=== PATIENT | male | born 1960 | race Caucasian/White ===

== ENCOUNTER 2017-03-06 17:06 | Observation (INO) | payer MEDICARE, MEDICAID ==
[2017-03-06 19:05] LABS: Albumin 3.8 g/dL (3.4-5.0); Alkaline Phosphatase 128 U/L (45-117); Anion Gap 10 (5-15); Aspartate Aminotransferase 34 U/L (15-37); BUN/Creatinine Ratio 14.3; Bilirubin, Total 0.6 mg/dL (0.2-1.0); Blood Urea Nitrogen 10 mg/dL (7-18); Calcium 8.4 mg/dL (8.5-10.1); Carbon Dioxide 20 mmol/L (21-32); Chloride 113 mmol/L (98-107); GFR African American 149 mL/min; GFR Non-African American 124 mL/min; Glucose 95 mg/dL (74-106); Potassium 3.6 mmol/L (3.5-5.1); Sodium 143 mmol/L (136-145); Total Protein 7.7 g/dL (6.4-8.2)
[2017-03-06 19:49] LABS: Basophils % (auto) 0.3 % (0.0-2.0); Eosinophils % (auto) 1.1 % (0.0-7.0); Lymphocytes # (auto) 0.4 uL; Lymphocytes % (auto) 16.7 % (10.0-50.0); Monocytes # (auto) 0.2 uL; Monocytes % (auto) 6.5 % (0.0-12.0); Neutrophils % (auto) 75.4 % (37.0-80.0); White Blood Cell 2.6 10^3/uL (4.4-10.8)
[2017-03-06 19:50] LABS: Basophils # (auto) 0 uL; Eosinophils # (auto) 0 uL; Hematocrit 39.8 % (41.0-53.0); Hemoglobin 13.5 g/dL (13.5-17.5); Mean Corpuscular Hemoglobin 28.8 pg (28.0-32.0); Mean Corpuscular Hgb Conc. 33.9 g/dL (32.0-36.0); Mean Corpuscular Volume 85.1 fL (80.0-100.0); Mean Platelet Volume 8.4 fL (6.9-10.8); Platelet Count (auto) 54 10^3/uL (140-450); Red Cell Distribution Width 17.4 % (11.8-14.3)
[2017-03-06 19:57] LABS: Platelet Estimate Decreased; RBC Morphology Normal
[2017-03-06 23:30] VITALS: BP 130/86
[2017-03-06] MEDS ORDERED: SODIUM CHLORIDE 0.9% 1,000 ML IV ONE ×2 (23:42)
[2017-03-06] MEDS ORDERED: THIAMINE HCL 100 MG/ML 2ML VIAL IV ONE (23:45)
== END 2017-03-07 06:21 | disposition home or self-care (01) | DRG 897 ==
LOC: EDBD 17:06 → ER 17:10 → OVERFLOW 17:11 → ER 03-07 05:09
PROVIDERS: ADMIT Emergency Medicine; ATTEND Emergency Medicine
DX: F10.129 Alcohol abuse with intoxication, unspecified (principal); F17.210 Nicotine dependence, cigarettes, uncomplicated; R41.82 Altered mental status, unspecified; I10 Essential (primary) hypertension; Z83.3 Family history of diabetes mellitus
CPT/HCPCS: 36415; 70450; 71010; 80053; 80320; 84484; 85025; 93005; 96361; 96374; 99285; G0378; J3411; J7030

== ENCOUNTER 2019-01-01 15:48 | Inpatient (IN) | payer MEDICAID, MEDICARE ==
[~2019-01-01] VITALS: Ht 177.8 cm; Wt 84.9 kg
[2019-01-01 17:51] LABS: Basophils # (auto) 0 uL; Eosinophils # (auto) 0 uL; Hemoglobin 14.2 g/dL (13.5-17.5); Monocytes # (auto) 0.2 uL; White Blood Cell 2.7 10^3/uL (4.4-10.8)
[2019-01-01 17:53] LABS: Basophils % (auto) 1.5 % (0.0-2.0); Eosinophils % (auto) 0.8 % (0.0-7.0); Lymphocytes # (auto) 0.7 uL; Lymphocytes % (auto) 24.3 % (10.0-50.0); Mean Corpuscular Hemoglobin 24.4 pg (28.0-32.0); Mean Corpuscular Hgb Conc. 32.2 g/dL (32.0-36.0); Mean Corpuscular Volume 75.9 fL (80.0-100.0); Monocytes % (auto) 5.5 % (0.0-12.0); Neutrophils # (auto) 1.8 uL; Neutrophils % (auto) 67.9 % (37.0-80.0); Nucleated Red Blood Cells % 0.3 %; Platelet Count (auto) 51 10^3/uL (140-450); Red Blood Cells 5.79 10^6/uL (4.5-5.90)
[2019-01-01 17:58] LABS: Red Cell Distribution Width 22.7 % (11.8-14.3)
[2019-01-01 18:36] LABS: Albumin 3.6 g/dL (3.4-5.0); Anion Gap 11 (5-15); Blood Urea Nitrogen 11 mg/dL (7-18); Calcium 7.6 mg/dL (8.5-10.1); Carbon Dioxide 19 mmol/L (21-32); Chloride 114 mmol/L (98-107); Glucose 83 mg/dL (74-106); Potassium 3.7 mmol/L (3.5-5.1); Sodium 144 mmol/L (136-145)
[2019-01-01 18:45] LABS: Alanine Aminotransferase 47 U/L (16-61); Alkaline Phosphatase 120 U/L (45-117); Aspartate Aminotransferase 45 U/L (15-37); BUN/Creatinine Ratio 13.3; Bilirubin, Total 0.6 mg/dL (0.2-1.0); GFR African American 122 mL/min; GFR Non-African American 101 mL/min; Total Protein 7.7 g/dL (6.4-8.2)
[2019-01-01] MEDS ORDERED: PANTOPRAZOLE 40 MG/10 ML VIAL INJ IV ONE (22:15)
[2019-01-01] MEDS ORDERED: SODIUM CHLORIDE 0.9% 1,000 ML IV SCH (22:15)
[2019-01-01] MEDS ORDERED: ONDANSETRON HCL 4 MG/2 ML VIAL IV PRN (22:15)
[2019-01-01 23:03] LABS: Hematocrit 39.2 % (41.0-53.0); Hemoglobin 12.7 g/dL (13.5-17.5)
[2019-01-01] MEDS ORDERED: FAMOTIDINE (10MG/ML) 2ML VL IV ONE (23:15)
[2019-01-02 00:07] VITALS: BP 147/84
--- NOTE | 2019-01-02 00:07 | NUR ---
[facility] admit from ER KATELYN ARENAS admitted to [facility] after hand off tool received. Patient oriented to primary RN, unit, room, bed, and unit policies regarding patient care and visiting hours. Patient weighed by bedscale and encouraged to call if they need something. All questions and concerns addressed, patient verbalized understanding.
--- NOTE | 2019-01-02 00:16 | NUR ---
Patient complaining of mod to severe pain to lower back. Paged CURRICULUM MANAGER Mian for pain medication, awaiting call back.
[2019-01-02] MEDS: chlordiazePOXIDE HCL 25 MG CAP PO PRN ×3 (00:31→17:07)
--- NOTE | 2019-01-02 00:31 | NUR ---
Patient noted with tremors to bilateral upper extremities. Will administer Librium as ordered.
[2019-01-02] MEDS ORDERED: AMITRIP PO (01:01)
[2019-01-02] MEDS ORDERED: TRAZ-220 PO (01:01)
[2019-01-02] MEDS ORDERED: CARI-277 PO (01:01)
--- NOTE | 2019-01-02 01:20 | NUR ---
Patient noted with open wound to right forehead and top of head. Pictures taken. Wound consult placed in per protocol.
[2019-01-02] MEDS: traMADol HCL 50 MG TAB PO PRN ×3 (01:53→19:47)
--- NOTE | 2019-01-02 01:53 | NUR ---
New order for Pain medication received.
[2019-01-02] MEDS: TEMAZEPAM 15 MG CAP PO PRN (01:54)
--- NOTE | 2019-01-02 02:02 | NUR ---
HOME MEDICATION Patient unable to recall complete list of home meds, requesting nurse to call pharmacy or PCP office for complete list. Will endorse to next shift RN in the morning.
--- NOTE | 2019-01-02 04:30 | NUR ---
UA Specimen bottle provided, instructed patient to call nurse when sample available. Pt verbalized understanding.
[2019-01-02 05:00] VITALS: BP 145/83
[2019-01-02] MEDS ORDERED: PANTOPRAZOLE 40 MG/10 ML VIAL INJ IV SCH ×2 (07:00→22:00)
[2019-01-02 08:00] VITALS: BP 134/77
[2019-01-02 08:30] LABS: Basophils # (auto) 0 uL; Basophils % (auto) 0.6 % (0.0-2.0); Eosinophils # (auto) 0 uL; Lymphocytes # (auto) 0.3 uL; Mean Corpuscular Hemoglobin 24.4 pg (28.0-32.0); Mean Corpuscular Hgb Conc. 32.1 g/dL (32.0-36.0); Neutrophils # (auto) 0.8 uL; Nucleated Red Blood Cells % 0.2 %
[2019-01-02 08:33] LABS: Eosinophils % (auto) 1.2 % (0.0-7.0); Hematocrit 37.2 % (41.0-53.0); Hemoglobin 11.9 g/dL (13.5-17.5); Lymphocytes % (auto) 23.1 % (10.0-50.0); Mean Corpuscular Volume 75.9 fL (80.0-100.0); Monocytes # (auto) 0.1 uL; Monocytes % (auto) 10.1 % (0.0-12.0); Platelet Count (auto) 32 10^3/uL (140-450)
[2019-01-02 08:53] LABS: BUN/Creatinine Ratio 14.7; Calcium 7.4 mg/dL (8.5-10.1); Potassium 3.9 mmol/L (3.5-5.1)
[2019-01-02 09:01] LABS: Red Cell Distribution Width 22.7 % (11.8-14.3)
[2019-01-02 09:02] LABS: White Blood Cell 1.3 10^3/uL (4.4-10.8)
[2019-01-02] MEDS ORDERED: FOLIC ACID 1 MG TAB PO SCH (10:00)
[2019-01-02] MEDS ORDERED: SPIRONOLACTONE 25 MG TAB PO SCH (10:00)
--- NOTE | 2019-01-02 10:10 | NUR ---
assessment Patient is a 58 year old male who is alert and oriented. Patients cognitive abilities are intact. Prior to admission patient lived home with family and functioned independently. Patient informed me he is able to care for his own ADLs. Per patient he will return home to his prior living arrangements post discharge and family will transport him home. Patient informed me his PCP is Dr Rowell. Patient informed me he fell in the ER bathroom. Patient informed me he is unsteady on his feet sometimes due to severe back problems. Patient feel safe returning home on discharge. I informed patient he has a right to speak to a social work supervisor regarding all care. I informed patient he has a right to participate in any and all discharge planning. Patient is aware of visiting hours on the hospital floor. I informed patient he has a right to privacy. Patient does not have a POA and advanced directive. I have offered patient information on POA and advanced directives. I informed the patient the advantages and benefits of having an Advanced Directive. Patient verbalized understanding and agreed to discharge plan. Addendum: 01/05/19 at 1548 by Cheri MATSON Amended: Links added.
--- NOTE | 2019-01-02 10:12 | NUR ---
WOUND CARE NOTE: Wound care in to see patient per wound care request regarding "open wound to Rt forehead and top head" that are noted present on admission. Bedside nurse took photograph of patient's wounds upon admission for reference. Patient is 58 y/o male admitted for GI Bleed. Patient is resting in bed in Rm. 222A. Patient is awake, alert and fully oriented. He's in no stated pain at this time. He's ambulatory with cane and self turn and reposition. His Pal score is 22. On reports, patient had a fall and sustain scalp contusion w/ abrasion, area is park, clean and dry, left open to air. His R lateral distal eye brow area has superficial laceration measuring 2cm that is well approximated. Old gauze dressing has scant dry blood noted, no active drainage noted. Patient's Rt periorbital is swollen and ecchymotic. Patient's L knee has 1.5x2.5cm open partial thickness skin tear. Wound is red with ecchymotic periwound, no drainage/odor noted. Cleansed patient's R eyebrow and L knee wound with NS,patted dry with sterile gauze, applied Thera honey gel and covered with Band aid per MD order. Patient tolerated well and denies any other wound. No further wound care monitoring needed at this time. RECOMMENDATIONS: EOD/ PRN dressing change to R eyebrow and L knee wound per MD order Addendum: 01/02/19 at 1400 by Kimberly Medrano RN Amended: Links added.
[2019-01-02] MEDS ORDERED: NICOTINE 21MG/24 HR TOPICAL PATCH TD ONE (10:45)
[2019-01-02] MEDS ORDERED: OCTREOTIDE ACETATE 100 MCG in SODIUM CHL 0.9% 50 ML IV ONE (11:00)
[2019-01-02] MEDS ORDERED: LACT10SO3 PO (11:03)
[2019-01-02] MEDS ORDERED: PROP10TA57 PO (11:03)
[2019-01-02] MEDS: SODIUM CHLORIDE 0.9% 1,000 ML IV SCH ×2 (11:14→23:28)
[2019-01-02] MEDS: MORPHINE SULF INJ 2 MG/ML SYRINGE 1ML IV PRN ×3 (11:26→21:11)
[2019-01-02 11:58] LABS: INR 1.11 (0.9-1.15); Partial Thromboplastin Time 30.5 sec (23.64-32.05)
[2019-01-02 12:00] VITALS: BP 145/80
[2019-01-02 12:49] LABS: Amphetamine Screen, Urine NEGATIVE (NEGATIVE); Barbiturate Scree,Urine NEGATIVE (NEGATIVE); Benzodiazephine Screen, Urine POSITIVE (NEGATIVE); Cannabinoid Screen, Urine NEGATIVE (NEGATIVE); Cocaine Screen, Urine NEGATIVE (NEGATIVE); Opiate Scree,Urine NEGATIVE (NEGATIVE); Phencyclidine Screen, Urine NEGATIVE (NEGATIVE)
[2019-01-02 12:54] LABS: Urine Bacteria NONE SEEN /hpf (None Seen); Urine Blood Negative /uL (Negative); Urine Specific Gravity 1.021 (1.001-1.035); Urine WBC <1 /hpf (0 - 3)
--- NOTE | 2019-01-02 14:20 | NUR ---
TAKEN TO PRE OP VIA BED PLATELETS INFUSING. NO SIGNS OF DISTRESS.
[2019-01-02] MEDS ORDERED: MIDAZOLAM HCL 1MG/1ML-2 ML VIAL IV PRN (14:30)
[2019-01-02] MEDS ORDERED: ONDANSETRON HCL 4 MG/2 ML VIAL IV PRN (14:30)
[2019-01-02] MEDS ORDERED: LABETALOL HCL 5 MG/ML 4ML SYRINGE IV PRN (14:30)
[2019-01-02] MEDS ORDERED: HYDROmorphone HCL 2 MG/ML VL IV PRN (14:30)
[2019-01-02] MEDS ORDERED: ePHEDrine SULFATE 50 MG/ML AMP IV PRN (14:30)
[2019-01-02] MEDS ORDERED: KETOROLAC TROMETH 30 MG/ML 1ML VIAL IV ONE (14:30)
[2019-01-02] MEDS ORDERED: MORPHINE SULFATE 4 MG/ML SYR/VIAL IV PRN (14:30)
[2019-01-02] MEDS ORDERED: MIDAZOLAM HCL 1MG/1ML-2 ML VIAL ONE (15:05)
[2019-01-02] MEDS ORDERED: fentaNYL CITRATE 100 MCG/2 ML VL ONE (15:05)
[2019-01-02] MEDS ORDERED: DexAMETHasone SOD PHOS 10MG/1ML VIAL INJ ONE (15:11)
[2019-01-02] MEDS ORDERED: PROPOFOL 10 MG/ML 20 ML IV ONE (15:20)
--- NOTE | 2019-01-02 15:31 | NUR ---
Received referral to see pt regarding dental services, Advance directive and how to apply for medi-vy. Pt and bed are not in the room.
[2019-01-02 17:00] VITALS: BP 161/85
[2019-01-02] MEDS: OCTREOTIDE ACETATE 500 MCG in SODIUM CHL 0.9% 99 ML IV SCH ×2 (18:28→21:08)
--- NOTE | 2019-01-02 19:15 | NUR ---
Opening Shift Note Assumed care of patient, awake and alert. No S/S of distress/SOB. The patient states that he is currently have 9/10 pain. Will treat with PRN pain medication. Instructed on POC and to call for assist PRN, will continue to monitor for changes Q1hr and PRN.
[2019-01-02 22:00] VITALS: BP 148/93
--- NOTE | 2019-01-02 23:15 | NUR ---
IV INSERTION IV insertion IV access obtained, via clean sterile technique by inserting a 22 gauge catheter at the right hand after 2 attempt(s). IV secured properly. No trauma to site. Patient tolerated well.
[2019-01-02] MEDS: FOLIC ACID 1 MG, MULTIPLE VITAMIN 10 ML, MAGNESIUM SULF SDV 50% 8 MEQ, THIAMINE INJ 100... INJ SCH ×5 (23:27)
[2019-01-03] MEDS: chlordiazePOXIDE HCL 25 MG CAP PO PRN ×4 (00:04→18:33)
[2019-01-03] MEDS: MORPHINE SULF INJ 2 MG/ML SYRINGE 1ML IV PRN ×6 (01:14→21:49)
[2019-01-03] MEDS: TEMAZEPAM 15 MG CAP PO PRN (02:55)
[2019-01-03] MEDS: traMADol HCL 50 MG TAB PO PRN ×3 (03:58→20:00)
[2019-01-03 05:00] VITALS: BP 140/88
[2019-01-03 05:57] LABS: Hemoglobin 11.5 g/dL (13.5-17.5)
[2019-01-03 06:01] LABS: Hematocrit 34.8 % (41.0-53.0); Mean Corpuscular Hgb Conc. 33.1 g/dL (32.0-36.0); Mean Corpuscular Volume 75.5 fL (80.0-100.0); Platelet Count (auto) 24 10^3/uL (140-450); Red Blood Cells 4.61 10^6/uL (4.5-5.90)
[2019-01-03 06:16] LABS: Albumin 3.3 g/dL (3.4-5.0); BUN/Creatinine Ratio 16.7; Calcium 7.5 mg/dL (8.5-10.1); Potassium 4.2 mmol/L (3.5-5.1)
[2019-01-03 06:19] LABS: Bilirubin, Total 1.1 mg/dL (0.2-1.0)
[2019-01-03] MEDS: OCTREOTIDE ACETATE 500 MCG in SODIUM CHL 0.9% 99 ML IV SCH (06:48)
[2019-01-03] MEDS: SODIUM CHLORIDE 0.9% 1,000 ML IV SCH ×2 (06:48→18:42)
[2019-01-03 07:38] LABS: White Blood Cell 0.9 10^3/uL (4.4-10.8)
[2019-01-03 07:40] LABS: Band Neutrophils % (manual) 2; Basophils % (manual) 0 (0.0-2.0); Blast Cells 0; Eosinophils % (manual) 0 (0-7); Lymphocytes % (manual) 7 (10.0-50.0); Metamyelocytes % 0; Monocytes % (manual) 8 (0-12); Myelocytes % 0; Promyelocytes % 0; Reactive Lymphocytes 0
[2019-01-03 08:00] VITALS: BP 135/82
[2019-01-03] MEDS: NICOTINE 21MG/24 HR TOPICAL PATCH TD SCH (10:05)
[2019-01-03] MEDS: FOLIC ACID 1 MG, MULTIPLE VITAMIN 10 ML, MAGNESIUM SULF SDV 50% 8 MEQ, THIAMINE INJ 100... INJ SCH ×5 (13:33)
[2019-01-03] MEDS: PROPRANOLOL HCL 20 MG TAB PO SCH ×2 (13:34→21:51)
[2019-01-03 14:26] VITALS: BP 152/84
[2019-01-03 17:00] VITALS: BP 136/79
--- NOTE | 2019-01-03 19:30 | NUR ---
Opening Shift Note Assumed care of patient, awake and alert. No S/S of distress/SOB or pain. Insructed on POC and to call for assist PRN, will continue to monitor for changes Q1hr and PRN.
--- NOTE | 2019-01-03 20:30 | NUR ---
Patient wants to take a shower. Toiletries and towels provided, WEAPONS DESIGNER will assist.
[2019-01-03 22:00] VITALS: BP 150/93
[2019-01-04] MEDS: TEMAZEPAM 15 MG CAP PO PRN (00:06)
[2019-01-04] MEDS: MORPHINE SULF INJ 2 MG/ML SYRINGE 1ML IV PRN ×5 (01:57→23:00)
--- NOTE | 2019-01-04 02:03 | NUR ---
IV to Right hand infiltrated, discontinued IV. Started new IV to LFA 22 g with good blood return x 1 attempt. Pt tolerated procedure well. Will continue to monitor.
[2019-01-04] MEDS: SODIUM CHLORIDE 0.9% 1,000 ML IV SCH ×3 (02:45→23:00)
[2019-01-04] MEDS: traMADol HCL 50 MG TAB PO PRN ×3 (04:23→20:33)
[2019-01-04 05:00] VITALS: BP 138/80
[2019-01-04] MEDS: PROPRANOLOL HCL 20 MG TAB PO SCH ×3 (06:15→21:19)
--- NOTE | 2019-01-04 07:03 | NUR ---
Opening Shift Note RECEIVED REPORT FROM NOC RN. Assumed care of patient, awake and alert. No S/S of distress/SOB or pain. BED IN LOWEST, LOCKED POSITION WITH SIDERAILS UP x2. Instructed on POC and to call for assist PRN, will continue to monitor for changes Q1hr and PRN.
[2019-01-04 07:16] LABS: Hematocrit 36.7 % (41.0-53.0)
[2019-01-04 07:22] LABS: Hemoglobin 11.9 g/dL (13.5-17.5)
[2019-01-04 08:20] VITALS: BP 117/77
[2019-01-04 09:00] VITALS: BP 117/77
[2019-01-04] MEDS: chlordiazePOXIDE HCL 25 MG CAP PO PRN (09:17)
--- NOTE | 2019-01-04 09:25 | NUR ---
DR. Ilana CARMONA AT BEDSIDE.
[2019-01-04] MEDS: PANTOPRAZOLE 40 MG TAB PO SCH (10:35)
[2019-01-04] MEDS: NICOTINE 21MG/24 HR TOPICAL PATCH TD SCH (10:36)
--- NOTE | 2019-01-04 11:45 | NUR ---
PATIENT ELOPED. PATIENT NOT IN ROOM. PERSONAL BELONGINGS GONE FROM BEDSIDE. CHARGE NURSE OPHELIA NOTIFIED.
--- NOTE | 2019-01-04 11:50 | NUR ---
SPOKE WITH CATHERINE AT [facility]'S DISPATCH REGARDING PATIENT ELOPEMENT WITH IV ACCESS STILL IN PLACE.
--- NOTE | 2019-01-04 12:15 | NUR ---
PATIENT BACK IN ROOM. ACCORDING TO PATIENT "I WENT FOR A WALK". ADVISED PATIENT THAT IF HE GOES FOR ANOTHER WALK TO INFORM STAFF AT THE NURSE'S STATION.
[2019-01-04] MEDS: FOLIC ACID 1 MG, MULTIPLE VITAMIN 10 ML, MAGNESIUM SULF SDV 50% 8 MEQ, THIAMINE INJ 100... INJ SCH ×5 (12:32)
[2019-01-04 13:00] VITALS: BP 119/75
--- NOTE | 2019-01-04 19:55 | NUR ---
assumed care, pt. awake, c/o pain, pain med not due yet, explained to pt. no sob.
[2019-01-04] MEDS: LACTULOSE 20Gm/30ML SOLN PO SCH (21:18)
[2019-01-04 22:00] VITALS: BP 140/86
[2019-01-05] MEDS: chlordiazePOXIDE HCL 25 MG CAP PO PRN (02:53)
[2019-01-05 04:00] VITALS: BP 130/69
[2019-01-05] MEDS: SODIUM CHLORIDE 0.9% 1,000 ML IV SCH (05:25)
[2019-01-05] MEDS: PROPRANOLOL HCL 20 MG TAB PO SCH (05:31)
[2019-01-05] MEDS: MORPHINE SULF INJ 2 MG/ML SYRINGE 1ML IV PRN (05:32)
[2019-01-05 08:20] VITALS: BP 131/85
[2019-01-05 08:40] LABS: Hematocrit 36.4 % (41.0-53.0); Mean Corpuscular Hgb Conc. 32.3 g/dL (32.0-36.0)
[2019-01-05 08:42] LABS: Hemoglobin 11.7 g/dL (13.5-17.5); Mean Corpuscular Hemoglobin 24.8 pg (28.0-32.0); Mean Corpuscular Volume 76.7 fL (80.0-100.0); Platelet Count (auto) 30 10^3/uL (140-450); Red Blood Cells 4.74 10^6/uL (4.5-5.90)
[2019-01-05 08:43] LABS: Albumin 3.3 g/dL (3.4-5.0); BUN/Creatinine Ratio 16.2; Calcium 7.9 mg/dL (8.5-10.1); Potassium 4.2 mmol/L (3.5-5.1)
[2019-01-05 08:52] LABS: Bilirubin, Total 0.7 mg/dL (0.2-1.0); Total Protein 6.6 g/dL (6.4-8.2)
[2019-01-05 09:00] VITALS: BP 131/85
[2019-01-05 09:12] LABS: Red Cell Distribution Width 22.8 % (11.8-14.3); White Blood Cell 1.2 10^3/uL (4.4-10.8)
[2019-01-05 09:14] LABS: Band Neutrophils % (manual) 0; Basophils % (manual) 0 (0.0-2.0); Blast Cells 0; Metamyelocytes % 0; Myelocytes % 0; Promyelocytes % 0; Reactive Lymphocytes 0
[2019-01-05] MEDS: LACTULOSE 20Gm/30ML SOLN PO SCH (09:38)
[2019-01-05] MEDS: NICOTINE 21MG/24 HR TOPICAL PATCH TD SCH (09:41)
[2019-01-05] MEDS: PANTOPRAZOLE 40 MG TAB PO SCH (09:41)
[2019-01-05 12:09] LABS: Hepatitis B Surface Antigen Negative (Negative)
[2019-01-05 12:11] LABS: Hepatitis A Ab IgM Negative; Hepatitis B Core IgM Negative
[2019-01-05 12:13] LABS: Hepatitis C Antibody Positive (Negative)
[2019-01-05 12:22] VITALS: BP 135/74
[2019-01-05 12:31] VITALS: BP 135/74
[2019-01-05 14:15] LABS: Eosinophils % (manual) 1 (0-7); Lymphocytes % (manual) 24 (10.0-50.0); Monocytes % (manual) 14 (0-12)
--- NOTE | 2019-01-05 15:48 | NUR ---
re-assessment Per consult alcohol abuse, provide resources. I have provided patient with resources for inpatient and outpatient ETOH abuse facilities. Patient accepted resources. Addendum: 01/05/19 at 1550 by Cheri Melgoza Amended: Links added.
== END 2019-01-05 14:05 | disposition home or self-care (01) | DRG 432 ==
LOC: EDBD 15:48 → ER 15:48 → OVERFLOW 15:49 → CENTRAL 23:43
PROVIDERS: ADMIT Nurse Practitioner; ATTEND Internal Medicine
PROC: 30233R1 Transfusion of Nonautologous Platelets into Peripheral Vein, Percutaneous Approach (ICD-10-PCS; 2019-01-02)
PROC: 06L38CZ Occlusion of Esophageal Vein with Extraluminal Device, Via Natural or Artificial Opening Endoscopic (ICD-10-PCS; principal; 2019-01-02 14:59)
DX: K70.30 Alcoholic cirrhosis of liver without ascites (principal); I85.11 Secondary esophageal varices with bleeding; K76.6 Portal hypertension; D61.818 Other pancytopenia; G93.40 Encephalopathy, unspecified; F10.129 Alcohol abuse with intoxication, unspecified; S00.81XA Abrasion of other part of head, initial encounter; S80.02XA Contusion of left knee, initial encounter; E78.5 Hyperlipidemia, unspecified; K29.70 Gastritis, unspecified, without bleeding; K29.80 Duodenitis without bleeding; K31.89 Other diseases of stomach and duodenum; S00.01XA Abrasion of scalp, initial encounter; B19.20 Unspecified viral hepatitis C without hepatic coma; D73.1 Hypersplenism; B18.2 Chronic viral hepatitis C; Y90.8 Blood alcohol level of 240 mg/100 ml or more; D69.59 Other secondary thrombocytopenia; F17.210 Nicotine dependence, cigarettes, uncomplicated; I10 Essential (primary) hypertension; Y92.238 Other place in hospital as the place of occurrence of the external cause; W18.39XA Other fall on same level, initial encounter; Y93.89 Activity, other specified; Y99.8 Other external cause status; Z83.3 Family history of diabetes mellitus
CPT/HCPCS: 36415; 36430; 43244; 70450; 71045; 72125; 74176; 80048; 80053; 80074; 80307; 80320; 81001; 82140; 82270; 84484; 85007; 85014; 85018; 85025; 85027; 85610; 85730; 86850; 86900; 86901; 96361; 96365; 96375; C9113; G0378; J1100; J2250; J2704; J3490